=== PATIENT | male | born 1975 | race Caucasian/White ===

== ENCOUNTER 2022-05-04 18:14 | Emergency (ER) | payer OTHER, SELFPAY ==
--- NOTE | ~2022-05-04 | XR_ITS ---
EXAMINATION: XR SHOULDER, RIGHT CLINICAL INFORMATION: Question fracture, pain COMPARISON: None TECHNIQUE: AP external rotation, Grashey, scapular Y, and axillary views of the right shoulder. FINDINGS: The bones and soft tissues are normal. No fracture. Glenohumeral and acromioclavicular alignment is anatomic with normal joint space. No abnormal soft tissue calcifications. XR/XR shoulder RT min 2V IMPRESSION: No definite fracture.
[2022-05-04 18:15] VITALS: BP 135/85; PULSE 87; RESP 18; TEMP 36.6; O2SAT 96; BMI 28.8
--- NOTE | 2022-05-04 19:11 | ED_ITS ---
HPI - Extremity Problem General Chief complaint: Extremity Injury, Upper Stated complaint: right shoulder inj..work related Time Seen by Provider: 05/04/22 18:58 Source: patient Mode of arrival: ambulatory Limitations: no limitations History of Present Illness HPI Narrative: The patient is a 47 year old male who presents for right shoulder pain. He states he was cleaning a love at work in a circumferential manner when a sudden sharp pain occurred in his right shoulder. He reports the pain is local to his right shoulder and did not radiates. The pain is 0/10 at rest and a 10/10 pain with ROM. The patient denies any history of trauma. He denies any chest pain, paresthesias, jaw pain, nausea/vomiting, shortness of breath or any other symptoms complaints or concerns at this time The patient denies any PMH, Allergies, or daily medications. MD Complaint: joint pain Onset (ago): hour(s) (4) Pain Consistency: intermittent Location: right Severity scale (1-10): 10 (with motion ) Quality: stabbing and sharp Radiation: none Relieving factors: rest Exacerbating factors: range of motion Associated symptoms: denies other symptoms Related Data Previous Rx's Medication Instructions Recorded cyclobenzaprine 10 mg tablet 10 mg PO Q8H Muscle strain #14 tabs 05/04/22 naproxen 500 mg tablet 500 mg PO BID PRN pain #14 tabs 05/04/22 Allergies Allergy/AdvReac Type Severity Reaction Status Date / Time cigarette smoke Allergy Difficulty Verified 05/04/22 18:23 Breathing mite-Dermatophagoides Allergy Difficulty Verified 05/04/22 18:23 farinae, meredith Breathing [dust mite - [place]] Penicillins Allergy Unknown Verified 05/04/22 18:23 Review of Systems Review of Systems: Constitutional : No Weight loss, No Fever, No Chills, No Night Sweats, No Fatigue, No Malaise ENT/Mouth : No Hearing loss, No Ear Pain, No Nasal Congestion, No Sinus Pain, No Hoarseness, No sore throat, No Rhinorrhea, No Swallowing Difficulty Eyes: No Eye Pain, No Swelling, No Redness, No Foreign Body, No Discharge, No Vision Changes Cardiovascular : No Chest Pain, No SOB, No Dyspnea on Exertion, No Orthopnea, No Edema, No Palpitations Respiratory : No Cough, No Sputum, No Wheezing, No Smoke Exposure, No Dyspnea Gastrointestinal : No Nausea, No Vomiting, No Diarrhea, No Constipation, No abdominal Pain, No Hematochezia, No Melena Genitourinary : no irregular bleeding, No Dysuria, No Urinary Frequency, No Hematuria, No Urinary Incontinence, No Urgency, No Flank Pain, No Urinary Flow Changes, No Hesitancy Musculoskeletal : + Right shoulder pain, No Myalgias, No Joint Swelling Skin : No Skin Lesions, No rash Neuro : No Weakness, No Numbness, No Paresthesias, No Loss of Consciousness, No Dizziness, No Headache Yes all other systems are reviewed and are negative FOR[facility]LY [facility] Past Medical History Attestation statement: The following information was validated with the patient. Source: old records reviewed and nursing notes reviewed Social History Social History Advance Directives: No Advance Directives Information Provided: No Physical Exam Vital Signs: Vital Signs: Last Vital Signs Temp 97.9 F 05/04/22 18:15 Pulse 87 05/04/22 18:15 Resp 18 05/04/22 18:15 BP 135/85 05/04/22 18:15 Pulse Ox 96 05/04/22 18:15 O2 Del Method 05/04/22 18:15 BMI result Body Mass Index 28.8 vital signs have been reviewed as normal and appeared to be correct. Blood pressure normal Heart rate normal. Respiration rate normal. Temperature normal. Oxygen saturation normal. Appearance: Alert. Oriented X3. No acute distress. Head: Normal external exam. Normocephalic. Atraumatic. Eyes: PERRLA. EOMI. Conjunctiva and sclera normal. Eyelids normal. ENT: Pharynx normal. Uvula midline. Moist mucous membranes. Neck: Normal inspection. Neck supple. FROM. CVS: Normal heart rate and rhythm. Respiratory: No respiratory distress. Painless inspiration. Skin: Skin warm and dry. Normal skin color. Normal skin turgor. No rashes/lesions/lacerations noted. Extremities: No lower extremity edema. Extremities exhibit normal range of motion. Extremities nontender. Neuro: Oriented X 3. No motor deficit. No sensory deficit. Reflexes normal. Normal steady gait. No focal neuro deficits noted. Musculoskeletal: Full ROM in upper extremities. No pain on palpation. Pain with adduction above the head and external rotation. + neal maneuver; - Empty can test; - Spurling Test. No obvious ligamentous or tendon injury noted to the right shoulder. Consistent muscle rupture. No upper extremity edema noted. Vascular: +2 radial pulses/b/l. Normal cap refill. No cyanosis noted to upper extremity nails. Course Course Course Narrative: 7pm -The patient is a 47 year old male who presents for right shoulder pain. He states he was cleaning a love a work in a circumferential manner when a sudden sharp pain occurred in his right shoulder. He reports the pain stated local to his shoulder and did not radiates. The pain is 0/10 at rest and a 10/10 pain with ROM. The patient denies any history of trauma. Plan d/c home on NSAIDs. MDM - Extremity (Nontraumatic) Medical Records Attestation: I reviewed the patient's medical records. Imaging Data Right shoulder x-ray: Attestation: I personally reviewed and interpreted this imaging study as follows: Radiologist's impression: FINDINGS: The bones and soft tissues are normal. No fracture. Glenohumeral and acromioclavicular alignment is anatomic with normal joint space. No abnormal soft tissue calcifications.? XR/XR shoulder RT min 2V IMPRESSION: No definite fracture. Discharge Plan Discharge Clinical Impression: Left shoulder strain, Work related injury Patient Disposition: Home, Self-Care Instructions: Muscle Strain (ED) Prescriptions: New naproxen 500 mg tablet 500 mg PO BID PRN (Reason: pain) Qty: 14 0RF cyclobenzaprine 10 mg tablet 10 mg PO Q8H Qty: 14 0RF Referrals: Physician,None [Primary Care Provider] - 2 days (your pcp)
[2022-05-04 20:10] VITALS: BP 140/87; PULSE 74; RESP 18; TEMP 36.6; O2SAT 97
[2022-05-04] MEDS: NaPROXEN 500 MG TABLET PO (20:18)
[2022-05-04] MEDS: Cyclobenzaprine HCl 10 MG TABLET PO (20:18)
--- NOTE | 2022-05-04 20:19 | PC.NURSE ---
pt a&o, no sob or chest pain at this charge, reviewed discharge instructions with pt. pt verbalized understanding No sign of distress upon discharge.
== END 2022-05-04 20:23 | disposition home or self-care (01) ==
PROVIDERS: Emergency Provider Internal Medicine
DX: S46.912A Strain of unspecified muscle, fascia and tendon at shoulder and upper arm level, left arm, initial encounter (principal); X50.3XXA Overexertion from repetitive movements, initial encounter; Y93.G1 Activity, food preparation and clean up; Y92.511 Restaurant or cafe as the place of occurrence of the external cause; Y99.0 Civilian activity done for income or pay
CPT/HCPCS: 73030; 99283; 99284